=== PATIENT | male | born 1990 | race Caucasian/White ===

== ENCOUNTER 2018-07-16 22:49 | Emergency (ER) | payer OTHER ==
[~2018-07-16] VITALS: Ht 180.3 cm; Wt 78.9 kg
[2018-07-16 23:13] VITALS: Ht 180.3 cm; Wt 78.9 kg
[2018-07-17 00:12] VITALS: BP 134/72
== END 2018-07-17 00:12 | disposition left against medical advice (07) ==
LOC: ED 22:49
DX: F10.129 Alcohol abuse with intoxication, unspecified (principal)
CPT/HCPCS: G0480; J7030